=== PATIENT | male | born 1950 | race Caucasian/White ===

== ENCOUNTER 2020-07-02 20:40 | Emergency (ER) | payer MEDICARE, SELFPAY ==
--- NOTE | 2020-07-02 20:49 | ED.SKABFB ---
HPI - Skin/Abscess/Foreign Bdy General Chief complaint: Skin/Abscess/Foreign Body Stated complaint: bite on leg, swelling leg Time Seen by Provider: 07/02/20 20:49 Source: patient and family Mode of arrival: ambulatory Limitations: no limitations History of Present Illness HPI narrative: 70-year-old man comes in today complaining of warmth, redness and swelling of his left lower leg has started yesterday after he was stung by an insect while mowing. States that he had more swelling today and it looks like the swelling was circumferential. He has had no fever, nausea, vomiting, wheezing, throat swelling or redness spreading up his leg. He has no history of skin infections. Is no history of diabetes. Record shows a Tdap in 2018. complaint: insect bite/sting Onset (ago): day(s) (1) Location: LLE Severity: mild Quality: burning and pruritic Pain Consistency: constant Exacerbating factors: palpation and movement Context: witnessed insect bite Associated symptoms: itching Treatments prior to arrival: none Related Data Home Medications Medication Instructions Recorded Confirmed lisinopril 20 mg tablet 20 mg PO DAILY 11/10/19 loratadine 10 mg tablet 10 mg PO DAILY 11/10/19 omeprazole 40 mg capsule,delayed 40 mg PO DAILY 11/10/19 release acetaminophen 500 mg tablet 1,000 mg PO TID PRN tablet 12/24/19 aspirin 81 mg chewable tablet 81 mg PO DAILY 12/24/19 loratadine 10 mg tablet 10 mg PO DAILY 12/24/19 omega-3 fatty acids 1,000 mg 1,000 mg PO BID 12/24/19 capsule omeprazole 40 mg capsule,delayed 40 mg PO DAILY 12/24/19 release Allergies Allergy/AdvReac Type Severity Reaction Status Date / Time No Known Allergies Allergy Verified 04/21/20 10:08 Review of Systems Constitutional: Constitutional: Denies chills and Denies fever(s) Eyes: Eyes: Denies change in vision and Denies photophobia ENT: Denies dysphagia, Denies nasal congestion and Denies sore throat Cardiovascular: Cardiovascular: Denies chest pain and Denies radiating jaw, neck or arm pain Respiratory: Respiratory: Denies cough, Denies dyspnea and Denies wheezing Gastrointestinal: Gastrointestinal: Denies abdominal pain, Denies nausea and Denies vomiting Integumentary/Breasts: Skin/Breast: Reports as per HPI, Reports pruritus, Reports erythema and Reports rash Neurologic: Denies vertigo, Denies dizziness and Denies syncope Hematologic/Lymphatic: Hematologic/Lymphatic: Denies easy bleeding and Denies easy bruising Allergic/Immunologic: Allergic/Immunologic: Denies lip swelling, Denies throat swelling and Denies wheezing [facility] Past Medical History Medical History GERD (gastroesophageal reflux disease) GERD (gastroesophageal reflux disease) HTN (hypertension) Hyperlipidemia Hyperlipidemia Hypertension Obesity Overweight Seasonal allergies Surgical History Surgical History History of tonsillectomy Hx of tonsillectomy Family History Family History (System 04/21/20 @ 10:08 by Haylie Starr) Mother Diabetes mellitus Depression Hyperlipidemia Father Rheumatic fever H/O mitral valve replacement x's 2, related to childhood rheumatic fever Mother Depression Family history of type 2 diabetes mellitus Hyperlipidemia Social History Social History Smoking status: Never smoker Alcohol intake: current Substance use: never Additional living arrangements comments: x1. 1 Daughter. 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
[2020-07-02 20:57] VITALS: BP 120/54; PULSE 103; RESP 16; TEMP 36.2; O2SAT 95
[2020-07-02] MEDS: CLINDAMYCIN HCL 150 MG CAP 300 MG PO (21:10)
== END 2020-07-02 21:14 | disposition home or self-care (01) ==
PROVIDERS: Emergency Provider Emergency Medicine; PCP Nurse Practitioner Family
DX: T63.481A Toxic effect of venom of other arthropod, accidental (unintentional), initial encounter (principal)
CPT/HCPCS: 99283; A9270

== ENCOUNTER 2020-07-07 09:30 | Outpatient (CLI) | payer MEDICARE, SELFPAY ==
[2020-07-07 09:57] LABS: Hematocrit 46.9 % (37.0-46.0); Hemoglobin 15.3 g/dL (12.4-15.3); Mean Corpuscular HGB Conc 32.6 g/dL (32.0-36.0); Mean Corpuscular Hemoglobin 30.4 pg (27.0-31.0); Mean Corpuscular Volume 93.1 fL (78.0-102.0); Mean Platelet Volume 11.8 fl (8.7-11.0); Platelet Count Result 195 K/mm3 (150-420); Red Blood Count 5.04 M/mm3 (4.70-6.10); Red Cell Distribution Width 12.6 % (11.6-14.4); White Blood Count 5.6 K/mm3 (4.8-10.8)
[2020-07-07 11:17] LABS: Alanine Aminotransferase 26 U/L (16-63); Albumin Level 3.6 g/dL (3.4-5.0); Alkaline Phosphatase 53 U/L (46-116); Anion Gap 7 mmol/L (8-16); Aspartate Amino Transferase 38 U/L (15-37); Bilirubin,Total 0.4 mg/dL (0.00-1.00); Blood Urea Nitrogen 22 mg/dL (7-18); Calcium 9.5 mg/dL (8.5-10.1); Carbon Dioxide 30 mmol/L (21-32); Chloride 102 mmol/L (98-108); Cholesterol 241 mg/dL (0-200); Estimated Glomerular Filt Rate > 60; Glucose 91 mg/dL (70-99); HDL Direct 38 mg/dL (40-60); LDL Cholesterol Calculated 135 mg/dL (<130); Osmolality Calculated 291 mOsm/kg (285-295); Potassium 4.5 mmol/L (3.5-5.1); Sodium 139 mmol/L (136-145); Total Protein 7.9 g/dL (6.4-8.2); Triglycerides 341 mg/dL (0-150)
== END 2020-07-07 09:31 | disposition home or self-care (01) ==
LOC: CHSLAB 09:32
PROVIDERS: PCP Family Medicine; Visit Provider Family Medicine
DX: I10 Essential (primary) hypertension (principal)
CPT/HCPCS: 36415; 80053; 80061; 85027

== ENCOUNTER 2021-08-30 08:24 | Outpatient (CLI) | payer MEDICARE, SELFPAY ==
[2021-08-30 08:48] LABS: Hematocrit 46.6 % (37.0-46.0); Hemoglobin 15.4 g/dL (12.4-15.3); Mean Corpuscular Hemoglobin 30.8 pg (27.0-31.0); Mean Corpuscular Volume 93.2 fL (78.0-102.0); Mean Platelet Volume 11.7 fl (8.7-11.0); Platelet Count Result 184 K/mm3 (150-420); Red Cell Distribution Width 12.6 % (11.6-14.4); White Blood Count 5.5 K/mm3 (4.8-10.8)
[2021-08-30 09:49] LABS: Alanine Aminotransferase 28 U/L (16-63); Albumin Level 3.9 g/dL (3.4-5.0); Alkaline Phosphatase 53 U/L (46-116); Anion Gap 8 mmol/L (8-16); Aspartate Amino Transferase 27 U/L (15-37); Bilirubin,Total 0.7 mg/dL (0.00-1.00); Blood Urea Nitrogen 21 mg/dL (7-18); Calcium 9.4 mg/dL (8.5-10.1); Carbon Dioxide 29 mmol/L (21-32); Chloride 103 mmol/L (98-108); Cholesterol 168 mg/dL (0-200); Estimated Glomerular Filt Rate > 60; Glucose 98 mg/dL (70-99); HDL Direct 44 mg/dL (40-60); LDL Cholesterol Calculated 91 mg/dL (<130); Osmolality Calculated 293 mOsm/kg (285-295); Potassium 4.5 mmol/L (3.5-5.1); Sodium 140 mmol/L (136-145); Total Protein 7.5 g/dL (6.4-8.2); Triglycerides 165 mg/dL (0-150)
[2021-09-05 09:59] LABS: Hemoglobin A1C 6.2 % (<5.7)
== END 2021-08-30 08:25 | disposition home or self-care (01) ==
PROVIDERS: PCP Family Medicine; Visit Provider Family Medicine
DX: I10 Essential (primary) hypertension (principal)
CPT/HCPCS: 36415; 80053; 80061; 83036; 85027

== ENCOUNTER 2021-09-05 09:24 | Outpatient (CLI) | payer MEDICARE, SELFPAY | END 2021-09-05 09:25 | disposition home or self-care (01) | LOC: CHSLAB 09:28 | PROVIDERS: PCP Family Medicine; Visit Provider Family Medicine | DX: R73.09 Other abnormal glucose (principal); Z13.1 Encounter for screening for diabetes mellitus; Z53.8 Procedure and treatment not carried out for other reasons | CPT/HCPCS: 99199 ==

== ENCOUNTER 2022-07-17 10:50 | Outpatient (CLI) | payer MEDICARE, SELFPAY ==
--- NOTE | ~2022-07-17 | XR_ITS ---
EXAMINATION: XR chest 2V DATE: 07/17/2022 11:11 INDICATION: Cough, unspecified. TECHNIQUE: Frontal and lateral views of the chest were obtained. COMPARISON: None. FINDINGS: There is mild atelectasis in left lower lung zone. No pleural effusion or pneumothorax. The heart size is normal. IMPRESSION: 1. Mild atelectasis in left lower lung zone. Reviewed, dictated and finalized at location A.
== END 2022-07-17 10:51 | disposition home or self-care (01) ==
LOC: CHSIMG 10:54
PROVIDERS: PCP Family Medicine; Visit Provider Nurse Practitioner Family
DX: R05.9 Cough, unspecified (principal)
CPT/HCPCS: 71046

== ENCOUNTER 2023-01-30 14:18 | Outpatient (CLI) | payer MEDICARE, SELFPAY ==
[2023-01-30 14:33] LABS: Hematocrit 49.3 % (37.0-46.0); Hemoglobin 16.2 g/dL (12.4-15.3); Mean Corpuscular HGB Conc 32.9 g/dL (32.0-36.0); Mean Corpuscular Hemoglobin 30.6 pg (27.0-31.0); Mean Corpuscular Volume 93.2 fL (78.0-102.0); Mean Platelet Volume 11.5 fl (8.7-11.0); Platelet Count Result 175 K/mm3 (150-420); Red Blood Count 5.29 M/mm3 (4.70-6.10); Red Cell Distribution Width 12.4 % (11.6-14.4); White Blood Count 6.2 K/mm3 (4.8-10.8)
[2023-01-30 15:04] LABS: Estimated Glomerular Filt Rate > 60
[2023-01-30 15:22] LABS: Alanine Aminotransferase 27 U/L (16-63); Albumin Level 4.2 g/dL (3.4-5.0); Alkaline Phosphatase 57 U/L (46-116); Anion Gap 7 mmol/L (8-16); Aspartate Amino Transferase 37 U/L (15-37); Bilirubin,Total 0.8 mg/dL (0.00-1.00); Blood Urea Nitrogen 16 mg/dL (7-18); Calcium 8.3 mg/dL (8.5-10.1); Carbon Dioxide 31 mmol/L (21-32); Chloride 101 mmol/L (98-108); Cholesterol 207 mg/dL (0-200); Glucose 95 mg/dL (70-99); HDL Direct 50 mg/dL (40-60); LDL Cholesterol Calculated 121 mg/dL (<130); Osmolality Calculated 289 mOsm/kg (285-295); Potassium 4.1 mmol/L (3.5-5.1); Prostate Specific Antigen 0.4 ng/mL (< OR = 4.0); Sodium 139 mmol/L (136-145); Total Protein 8.1 g/dL (6.4-8.2); Triglycerides 179 mg/dL (0-150)
[2023-02-01 21:23] LABS: Vitamin D 25 Hydroxy 36 ng/mL (30-100)
== END 2023-01-30 14:19 | disposition home or self-care (01) ==
PROVIDERS: PCP Nurse Practitioner Family; Visit Provider Nurse Practitioner Family
DX: E78.5 Hyperlipidemia, unspecified (principal); I10 Essential (primary) hypertension; Z12.5 Encounter for screening for malignant neoplasm of prostate; E55.9 Vitamin D deficiency, unspecified; E66.9 Obesity, unspecified
CPT/HCPCS: 36415; 80053; 80061; 82306; 84153; 85027; G0103

== ENCOUNTER 2023-04-19 09:29 | Outpatient (CLI) | payer MEDICARE, SELFPAY ==
--- NOTE | ~2023-04-19 | XR_ITS ---
EXAMINATION: XR shoulder LT min 2V DATE: 04/19/2023 09:49 INDICATION: Left shoulder pain. TECHNIQUE: 4 views of left shoulder were obtained. COMPARISON: None. FINDINGS: Bone alignment is normal. No fracture. There is mild osteoarthritis of glenohumeral joint a nd severe osteoarthritis of acromioclavicular joint. IMPRESSION: 1. Polyarticular osteoarthritis. Reviewed, dictated and finalized at location E.
== END 2023-04-19 09:30 | disposition home or self-care (01) ==
LOC: CHSIMG 09:31
PROVIDERS: PCP Family Medicine; Visit Provider Family Medicine
DX: M25.512 Pain in left shoulder (principal); M19.012 Primary osteoarthritis, left shoulder
CPT/HCPCS: 73030

== ENCOUNTER 2023-05-24 01:36 | Day surgery (SDC) | payer MEDICARE, SELFPAY ==
[2023-05-01 14:03] VITALS: BMI 32.2
[2023-05-24 09:22] VITALS: BP 129/68; PULSE 100; RESP 18; TEMP 35.7; O2SAT 100
[2023-05-24] MEDS: LACTATED RINGERS 1,000 ML 150 ML IV CONT (09:32)
--- NOTE | 2023-05-24 09:47 | PM.IMHP ---
H&P: HPI History of Present Illness Date/Time: 05/24/23 09:47 Chief Complaint: History of colon polyps Narrative: This is a 73-year-old man who presents for colonoscopy. His last colonoscopy was 5 years ago and polyps were removed at that time. He denies any hematochezia or melena. He denies any family history of colon cancer. Review of Systems Review of Systems: All systems reviewed & are unremarkable except as noted in HPI and below Constitutional: Constitutional: Denies chills, Denies fever(s), Denies headache(s) and Denies weight loss Eyes: Eyes: Denies change in vision ENT: Denies dizziness, Denies headache(s), Denies neck mass and Denies throat swelling Cardiovascular: Cardiovascular: Denies chest pain, Denies lightheadedness and Denies dyspnea Respiratory: Respiratory: Denies cough, Denies dyspnea and Denies wheezing Gastrointestinal: Gastrointestinal: Denies abdominal pain, Denies change in bowel habits, Denies nausea and Denies vomiting Genitourinary: Genitourinary: Denies hematuria and Denies dysuria Musculoskeletal: Musculoskeletal: Reports as per HPI Integumentary/Breasts: Skin/Breast: Reports as per HPI Neurologic: Denies dizziness and Denies headache(s) Allergic/Immunologic: Allergic/Immunologic: Denies throat swelling and Denies wheezing [facility] Past Medical History Medical History (Updated 05/24/23 @ 09:47 by Clayton Singh DO) History of colon polyps HTN (hypertension) Hyperlipidemia Obesity Surgical History Surgical History History of tonsillectomy Hx of tonsillectomy Family History Family History Mother Diabetes mellitus Depression Hyperlipidemia Father Rheumatic fever H/O mitral valve replacement x's 2, related to childhood rheumatic fever Mother Depression Family history of type 2 diabetes mellitus Hyperlipidemia Social History Social History Smoking status: Never smoker Alcohol intake: current Alcohol use details: rarely Substance use: never Substance use type: does not use Lack of Transportation: No Lack of Food: Never True Current Housing: I Have Housing Concerned About Future Housing: No Difficulty Paying Gas/Electric Bills: No Difficulty Paying for Meds: No Currently Unemployed: No Education: High School Diploma/GED Difficulty w/ Childcare or Family Care: No Living arrangements: alone Additional living arrangements comments: x1. 1 Daughter. 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 Gender identity (if verbalized by the patient): Male Spiritual care concerns: No Meds Home Medications and Allergies Home Medications Medication Instructions Recorded Confirmed Type acetaminophen 500 mg tablet 1,000 mg PO TID PRN Pain 12/24/19 05/01/23 History (Tylenol Extra Strength) omeprazole 40 mg capsule,delayed 40 mg PO DAILY PRN heart burn 06/21/22 05/01/23 History release lisinopril 20 mg tablet See Rx Instructions .Route 09/27/22 05/01/23 Rx .COMPLEX #90 tabs cetirizine 10 mg tablet (Zyrtec) 10 mg PO DAILY PRN Allergy Symptoms 01/30/23 05/01/23 History cholecalciferol (vitamin D3) 50 100 mcg PO DAILY #30 caps 02/08/23 05/01/23 Rx mcg (2,000 unit) capsule magnesium oxide 420 mg tablet 420 mg PO QHS #60 tabs 02/08/23 05/01/23 Rx rosuvastatin 20 mg tablet See Rx Instructions .Route 04/30/23 05/01/23 Rx .COMPLEX #90 tabs Allergies Allergy/AdvReac Type Severity Reaction Status Date / Time No Known Allergies Allergy Verified 05/24/23 09:21 Vital Signs Vital Signs - 24 hr 05/24/23 09:22 Temperature 35.7 C L Pulse Rate 100 Respiratory Rate 18 Blood Pressure 129/68 Pulse Oximetry 100 Oxygen Delivery Room Air Exam Const: General: no acute distress and a
[2023-05-24 10:13] VITALS: BP 74/49; PULSE 83; RESP 20; O2SAT 95
[2023-05-24 10:23] VITALS: BP 80/58; PULSE 83; RESP 18; O2SAT 96
[2023-05-24 10:33] VITALS: BP 96/60; PULSE 81; RESP 21; O2SAT 96
== END 2023-05-24 10:44 | disposition home or self-care (01) ==
PROVIDERS: PCP Family Medicine; Visit Provider Surgery
PROC: 0DJD8ZZ Inspection of Lower Intestinal Tract, Via Natural or Artificial Opening Endoscopic (ICD-10-PCS; CPT 45378; principal; 2023-05-24 10:15)
DX: Z12.11 Encounter for screening for malignant neoplasm of colon (principal); D12.2 Benign neoplasm of ascending colon; K57.30 Diverticulosis of large intestine without perforation or abscess without bleeding; K64.8 Other hemorrhoids; I10 Essential (primary) hypertension; E78.5 Hyperlipidemia, unspecified; E66.9 Obesity, unspecified; Z68.31 Body mass index [BMI] 31.0-31.9, adult
CPT/HCPCS: 45385; 88305; J2704; J7120

== ENCOUNTER 2023-11-06 07:56 | Outpatient (CLI) | payer MEDICARE, SELFPAY ==
[2023-11-06 08:33] LABS: Cholesterol 199 mg/dL (0-200); HDL Direct 49 mg/dL (40-60); LDL Cholesterol Calculated 109 mg/dL (<130); Triglycerides 206 mg/dL (0-150)
== END 2023-11-06 07:57 | disposition home or self-care (01) ==
LOC: CHSLAB 07:58
PROVIDERS: PCP Family Medicine; Visit Provider Nurse Practitioner Family
DX: E66.9 Obesity, unspecified (principal)
CPT/HCPCS: 36415; 80061

== ENCOUNTER 2024-01-04 08:39 | Outpatient (CLI) | payer MEDICARE, SELFPAY ==
--- NOTE | ~2024-01-04 | XR_ITS ---
EXAMINATION: XR finger 1st LT min 2V INDICATION: Left first finger pain and swelling TECHNIQUE: Three views of the left first finger are obtained. COMPARISON: 05/31/2007 FINDINGS: There is mild osteoarthritis of the interphalangeal joint and first carpal metacarpal joint . Bone alignment is normal. There is no fracture. IMPRESSION: 1. No acute osseous abnormality. Reviewed, dictated and finalized at location B. 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
[2024-01-04 09:00] LABS: Basophils Absolute Auto 0.03 K/mm3 (0.00-0.10); Basophils Percent Auto 0.5 % (0.0-1.0); Eosinophils Absolute Auto 0.14 K/mm3 (0.02-0.50); Eosinophils Percent Auto 2.3 % (1.0-6.0); Hematocrit 46.2 % (37.0-46.0); Hemoglobin 15.2 g/dL (12.4-15.3); Immature Granulocyte Absolute 0.01 K/mm3 (0.00-0.00); Immature Granulocyte Percent A 0.2 % (0.0-0.0); Lymphocytes Absolute Auto 1.33 K/mm3 (1.10-4.50); Lymphocytes Percent Auto 21.7 % (18.0-42.0); Mean Corpuscular HGB Conc 32.9 g/dL (32.0-36.0); Mean Corpuscular Hemoglobin 29.9 pg (27.0-31.0); Mean Corpuscular Volume 90.9 fL (78.0-102.0); Mean Platelet Volume 11.7 fl (8.7-11.0); Monocytes Absolute Auto 0.58 K/mm3 (0.10-0.90); Monocytes Percent Auto 9.4 % (2.0-11.0); Neutrophils Absolute Auto 4.1 K/mm3 (1.7-7.2); Neutrophils Percent Auto 65.9 % (50.0-70.0); Platelet Count Result 168 K/mm3 (150-420); Red Blood Count 5.08 M/mm3 (4.70-6.10); Red Cell Distribution Width 12.6 % (11.6-14.4); White Blood Count 6.1 K/mm3 (4.8-10.8)
[2024-01-04 09:31] LABS: Hemoglobin A1C 6.2 % (<5.7)
[2024-01-04 10:26] LABS: Alanine Aminotransferase 26 U/L (16-63); Albumin Level 3.8 g/dL (3.4-5.0); Alkaline Phosphatase 52 U/L (46-116); Anion Gap 11 mmol/L (8-16); Aspartate Amino Transferase 35 U/L (15-37); Bilirubin,Total 0.5 mg/dL (0.00-1.00); Blood Urea Nitrogen 23 mg/dL (7-18); Calcium 9.3 mg/dL (8.5-10.1); Carbon Dioxide 27 mmol/L (21-32); Chloride 102 mmol/L (98-108); Cholesterol 196 mg/dL (0-200); Estimated Glomerular Filt Rate > 60; Glucose 95 mg/dL (70-99); HDL Direct 47 mg/dL (40-60); LDL Cholesterol Calculated 82 mg/dL (<130); Osmolality Calculated 293 mOsm/kg (285-295); Potassium 4.5 mmol/L (3.5-5.1); Sodium 140 mmol/L (136-145); Total Protein 7.5 g/dL (6.4-8.2); Triglycerides 335 mg/dL (0-150)
== END 2024-01-04 08:40 | disposition home or self-care (01) ==
PROVIDERS: PCP Family Medicine; Visit Provider Family Medicine
DX: I10 Essential (primary) hypertension (principal); E11.9 Type 2 diabetes mellitus without complications; M79.645 Pain in left finger(s)
CPT/HCPCS: 36415; 73140; 80053; 80061; 83036; 85025

== ENCOUNTER 2024-01-10 10:43 | Outpatient (NON) | payer MEDICARE, SELFPAY | END 2024-01-10 10:44 | disposition home or self-care (01) | LOC: CHSLAB 10:44 | PROVIDERS: Visit Provider Family Medicine | DX: L57.0 Actinic keratosis (principal) | CPT/HCPCS: 88305 ==

== ENCOUNTER 2024-02-16 10:11 | Outpatient (CLI) | payer MEDICARE, SELFPAY ==
--- NOTE | ~2024-02-16 | MR_ITS ---
EXAMINATION: MR hand LT wo con DATE: 02/16/2024 11:52 INDICATION: Localized swelling, mass and lump, left thumb. TECHNIQUE: Magnetic resonance imaging (MRI) of the left hand was performed without intravenous contra st. COMPARISON: Left thumb radiographs 01/04/2024 FINDINGS: Bone alignment is normal. No fracture. There is moderate osteoarthritis of first carpometac arpal joint and mild osteoarthritis of first metacarpophalangeal joint and first interphalangeal join t. Ulnar and palmar to first interphalangeal joint, there is abnormal signal in the subcutaneous fat in an infiltrative distribution. No metallic foreign body. The flexor and extensor tendons are normal in the first digit. IMPRESSION: 1. Abnormal signal intensity in the subcutaneous fat ulnar and palmar to first interphalangeal joint, likely inflammation or scarring. 2. Polyarticular osteoarthritis. Reviewed, dictated and finalized at location E.
== END 2024-02-16 10:12 | disposition home or self-care (01) ==
LOC: CHSIMG 10:14
PROVIDERS: PCP Family Medicine; Visit Provider Family Medicine
DX: R22.32 Localized swelling, mass and lump, left upper limb (principal); M19.042 Primary osteoarthritis, left hand
CPT/HCPCS: 73218

== ENCOUNTER 2025-02-24 10:17 | Outpatient (CLI) | payer MEDICARE, SELFPAY ==
[2025-02-24 10:34] LABS: Basophils Absolute Auto 0.03 K/mm3 (0.00-0.10); Basophils Percent Auto 0.5 % (0.0-1.0); Eosinophils Absolute Auto 0.17 K/mm3 (0.02-0.50); Eosinophils Percent Auto 2.9 % (1.0-6.0); Hematocrit 45.5 % (37.0-46.0); Hemoglobin 14.4 g/dL (12.4-15.3); Immature Granulocyte Absolute 0.01 K/mm3 (0.00-0.00); Immature Granulocyte Percent A 0.2 % (0.0-0.0); Lymphocytes Absolute Auto 1.24 K/mm3 (1.10-4.50); Lymphocytes Percent Auto 21.1 % (18.0-42.0); Mean Corpuscular HGB Conc 31.6 g/dL (32-36); Mean Corpuscular Hemoglobin 29.8 pg (27.0-31.0); Mean Corpuscular Volume 94.2 fL (78.0-102.0); Monocytes Absolute Auto 0.46 K/mm3 (0.10-0.90); Monocytes Percent Auto 7.8 % (2.0-11.0); Neutrophils Absolute Auto 3.96 K/mm3 (1.70-7.20); Neutrophils Percent Auto 67.5 % (50.0-70.0); Platelet Count Result 196 K/mm3 (150-420); Red Blood Count 4.83 M/mm3 (4.70-6.10); Red Cell Distribution Width 12.9 % (11.6-14.4); White Blood Count 5.9 K/mm3 (4.8-10.8)
[2025-02-24 11:05] LABS: Alanine Aminotransferase 25 U/L (16-63); Albumin Level 3.8 g/dL (3.4-5.0); Alkaline Phosphatase 67 U/L (46-116); Anion Gap 6 mmol/L (4-12); Aspartate Amino Transferase 34 U/L (15-37); Bilirubin,Total 0.5 mg/dL (0.00-1.00); Blood Urea Nitrogen 18 mg/dL (7-18); Calcium 9.4 mg/dL (8.5-10.1); Carbon Dioxide 30 mmol/L (21-32); Chloride 102 mmol/L (98-108); Estimated Glomerular Filt Rate > 60; Glucose 104 mg/dL (70-99); Osmolality Calculated 287 mOsm/kg (285-295); Potassium 4.3 mmol/L (3.5-5.1); Sodium 138 mmol/L (136-145); Total Protein 7.5 g/dL (6.4-8.2)
--- OUTSIDE RECORDS SUMMARY | 2025-02-24 11:20 | XMS_ITS | Clinical Summary ---
Author Organization [facility] Address [address] [place] [id number] Care Team Providers Care Medical Lab Scientist Name Role Phone Unavailable Primary Care Provider Unavailabl e Social History Tobacco Use Types Packs/Day Years Used Date Smoking Tobacco: Never Assessed Sex and Gender Information Value Date Recorded Sex Assigned at Not on file Legal Sex Male 8:29 PM CDT Gender Identity Not on file Sexual Orientation Not on file Last Filed Vital Signs Vital Sign Reading Time Taken Comments Blood Pressure 158/82 08/05/2009 3:19 PM CDT Pulse 78 08/05/2009 3:19 PM CDT Temperature - - Respiratory Rate 18 08/05/2009 3:19 PM CDT Oxygen Saturation - - Inhaled Oxygen Concentration - - Weight 81.6 kg (180 lb) 08/05/2009 3:19 PM CDT Height 175.3 cm (5' 9 ) 08/05/2009 3:19 PM CDT Body Mass Index 26.58 08/05/2009 3:19 PM CDT Plan of Treatment Health Maintenance Due Date Last Done Comments Colorectal Cancer Screening Colonoscopy (10 Years) 1949 Hepatitis C 1967 DTaP, Tdap and Td Vaccines ( 1 - Tdap) 1968 Zoster Vaccines (1 of 2) 1999 Pneumococcal Vaccine: 65+ Ye ars (1 of 1 - PCV) 2014 RSV Immunization or 60+ Years (1 - 1-dose 75+ series) 2024 COVID-19 Vaccine ( - 2023-2 5 season) 2024 Influenza Adult (#1) 2024 Meningococcal B Vaccine Aged Out No l onger eligible based on patient's age to complete this topic Meningococcal Vaccine Aged Out No epi ericka eligible based on patient's age to complete this topic RSV Immunizations Under 20 Months Aged Out No longer eligible based on patient's age to complete this topic
== END 2025-02-24 10:18 | disposition home or self-care (01) ==
LOC: CHSLAB 10:19
PROVIDERS: PCP Family Medicine; Visit Provider Family Medicine
DX: H02.402 Unspecified ptosis of left eyelid (principal)
CPT/HCPCS: 36415; 80053; 85025